=== PATIENT | female | born 1995 | race Caucasian/White ===

== ENCOUNTER 2021-12-04 09:52 | Outpatient (CLI) | payer OTHER, SELFPAY ==
[2021-12-04 10:05] LABS: Hematocrit 41.2 % (37.0-47.0); Hemoglobin 13.9 g/dL (12.0-15.0); Mean Corpuscular HGB Conc 33.7 g/dl (32-36); Mean Corpuscular Hemoglobin 30.9 pg (26-34); Mean Corpuscular Volume 91.6 fl (80-100); Mean Platelet Volume 9.9 fl (7.4-10.4); Platelet Count Result 306 k/mm3 (150-375); Red Cell Distribution Width 12.3 % (11.5-14.5); White Blood Count 9.5 K/mm3 (4.5-10.0)
[2021-12-04 10:19] LABS: Alanine Aminotransferase 22 U/L (6-35); Albumin Level 4.8 g/dL (3.5-5.1); Alkaline Phosphatase 58 U/L (38-126); Anion Gap 13 mmol/L (8-16); Aspartate Amino Transferase 29 U/L (14-36); Bilirubin,Total 0.3 mg/dL (0.2-1.3); Blood Urea Nitrogen 12 mg/dL (7-17); CRP < 0.5 mg/dL (<1.0); Calcium 8.9 mg/dL (8.4-10.2); Carbon Dioxide 27 mmol/L (22-30); Chloride 103 mmol/L (98-107); Estimated Glomerular Filt Rate > 60; Glucose 104 mg/dL (65-110); Lipase 47 U/L (23-300); Sodium 143 mmol/L (137-145)
[2021-12-04 10:40] LABS: Erythrocyte Sedimentation Rate 17 mm/hr (0-20)
== END 2021-12-04 09:53 | disposition home or self-care (01) ==
LOC: ANHLAB 09:53
PROVIDERS: PCP Physician Assistant Medical; Visit Provider Nurse Practitioner
DX: K21.9 Gastro-esophageal reflux disease without esophagitis (principal); K59.00 Constipation, unspecified; R10.11 Right upper quadrant pain; R68.81 Early satiety
CPT/HCPCS: 36415; 80053; 83690; 84443; 85027; 85652; 86140

== ENCOUNTER 2022-01-04 01:06 | Day surgery (SDC) | payer OTHER, SELFPAY ==
[2021-12-17 13:32] VITALS: BMI 26.6
[2022-01-04 10:10] VITALS: BP 129/80; PULSE 105; RESP 18; TEMP 36.7; O2SAT 100; BMI 28.4
--- NOTE | 2022-01-04 10:27 | P.PNAN_ITS ---
Anes - Initial Pre Proc Eval Procedure: Operation Date: 01/04/22 14:15 Proposed Procedures p Esophagogastroduodenoscopy & Colonoscopy - Antony Hernández MD Date/Time: 01/04/22 10:27 Surgeon: Antony Hernández MD Pre Op Diagnosis: RUQ pain, GERD; change in bowel habits Patient Data Age: 26 Gender: F Height: 1.7 m Weight: 82.3 kg Last Vital Signs Temp 36.7 C 01/04/22 10:10 Pulse 105 H 01/04/22 10:10 Resp 18 01/04/22 10:10 BP 129/80 01/04/22 10:10 Pulse Ox 100 01/04/22 10:10 O2 Del Method Room Air 01/04/22 10:10 Allergies Allergy/AdvReac Type Severity Reaction Status Date / Time azithromycin AdvReac Gastrointestinal Verified 01/04/22 10:17 [From Zithromax Z-Remy] Upset Home Medications Medication Instructions Recorded Confirmed Type levonorgestrel 20 mcg/24 hours (8 1 device intrauterine ONCE 10/02/21 01/04/22 History yrs) 52 mg intrauterine device (Mirena) multivitamin 1 tablet PO DAILY 10/02/21 01/04/22 History sertraline 50 mg tablet 50 mg PO DAILY #90 tabs 12/09/21 01/04/22 Rx famotidine 40 mg tablet 40 mg PO DAILY #30 tabs 12/11/21 01/04/22 Rx polyethylene glycol 3350 17 17 g PO PRN PRN Constipation 12/17/21 01/04/22 History gram/dose oral powder (Miralax) Patient hx anesthesia problems: none Family hx anesthesia problems: none Results Review: All pre-operative results and documents have been reviewed as part of the pre- operative evaluation. [facility] Past Medical History Medical History (Updated 12/04/21 @ 09:58 by Dilcia Anderson APRN) Abdominal pain Bloating Change in bowel habit Constipation Early satiety GERD (gastroesophageal reflux disease) Latent tuberculosis Overweight (BMI 25.0-29.9) RUQ pain Family History Family History Mother Hypertension Grandparent Diabetes mellitus Social History Social History (Reviewed 10/28/22 @ 09:02 by RAMOS Gomez Smoking status: Never smoker Alcohol intake: never Substance use type: does not use Living arrangements: with family Spiritual care concerns: No Anes - Eval Final PreProcedure Day of Procedure 01/04/22 10:27 Patient weight: overweight Heart: regular rate and rhythm Lungs: clear to auscultation and normal air movement Airway: Mallampati scale class II Neurological: alert and oriented Last oral intake: >/= 8 hours ASA classification: II Emergent: no Anesthetic plan: proceed Anesthesia type and monitoring: general GIVS Results Review: All pre-operative results and documents have been reviewed as part of the pre- operative evaluation. Informed Consent: The patient's anesthetic plan and its attendant risks and benefits were discussed with the patient/family/POA. Questions were solicited and answers provided to the satisfaction of the patient/family/POA.
[2022-01-04] MEDS: LACTATED RINGERS 1,000 ML 150 ML IV CONT (10:29)
--- NOTE | 2022-01-04 10:34 | WPDHPUPDATE1 ---
History and Physical Update Update Date/Time: 01/04/22 10:34 History and Physical has been reviewed, including an updated exam of the patient. There are NO changes in the patient's condition. Risks, benefits, and alternatives have been discussed and questions answered. Patient agrees to proceed with procedure.
[2022-01-04 10:58] VITALS: BP 95/57; PULSE 96; RESP 21; O2SAT 100
--- NOTE | 2022-01-04 10:58 | SUR.OPER ---
EGD START: 1038; END: 1043. COLONOSCOPY START: 1048; END: 1057.
[2022-01-04 11:08] VITALS: BP 112/73; PULSE 101; RESP 18; O2SAT 100
[2022-01-04 11:18] VITALS: BP 111/74; PULSE 85; RESP 18; O2SAT 100
== END 2022-01-04 11:29 | disposition home or self-care (01) ==
PROVIDERS: PCP Physician Assistant Medical; Visit Provider Internal Medicine Gastroenterology
PROC: 0DJ08ZZ Inspection of Upper Intestinal Tract, Via Natural or Artificial Opening Endoscopic (ICD-10-PCS; CPT 43235; principal; 2022-01-04 14:15)
DX: R10.11 Right upper quadrant pain (principal); K59.00 Constipation, unspecified; K64.8 Other hemorrhoids; K21.00 Gastro-esophageal reflux disease with esophagitis, without bleeding
CPT/HCPCS: 45378; 43239; 88305; J2704; J7120

== ENCOUNTER 2022-10-19 08:01 | Outpatient (CLI) | payer OTHER, BC, SELFPAY ==
--- NOTE | ~2022-10-19 | CT_ITS ---
EXAMINATION: CT abdomen pelvis w con DATE: 10/19/2022 08:22 INDICATION: Right upper quadrant pain, nausea, bloating and early satiety TECHNIQUE: Computed tomography (CT) of the abdomen and pelvis was performed with 100 cc Omnipaque 350 intravenous contrast. The dose-length product was 572.47 mGy-cm. Automated exposure control and iter ative reconstruction technique were employed. COMPARISON: Obstructive series dated 11/26/2021. FINDINGS: Lung bases are unremarkable. Fatty infiltration of the liver. No focal hepatic masses. The spleen, pancreas, adrenal glands and kidneys are unremarkable. Gallbladder is present. There are pelv ic phleboliths. There is mild endometrial prominence. There are follicular changes in the right ovary . Nonobstructive bowel gas pattern. Moderate colonic fecal loading. No free air there is colonic dive rticulosis without evidence for diverticulitis. No free air or free fluid. Gallbladder is present. No secondary findings to suggest cholecystitis. No significant biliary dilatation. No hydronephrosis. N o significant vascular abnormality. No lymphadenopathy. Mild lumbar spondylosis. IMPRESSION: 1. No acute abdominal abnormality. Reviewed, dictated and finalized at location L.
== END 2022-10-19 08:02 | disposition home or self-care (01) ==
PROVIDERS: PCP Physician Assistant Medical; Visit Provider Nurse Practitioner
DX: R14.0 Abdominal distension (gaseous) (principal); R68.81 Early satiety; R10.11 Right upper quadrant pain; K21.9 Gastro-esophageal reflux disease without esophagitis
CPT/HCPCS: 74177; Q9967

== ENCOUNTER 2022-10-21 09:33 | Outpatient (CLI) | payer OTHER, BC, SELFPAY ==
--- NOTE | ~2022-10-21 | NM_ITS ---
EXAM: NM gastric emptying study DATE: 10/21/2022 14:26 INDICATION: Right upper quadrant abdominal pain. TECHNIQUE: A gastric emptying study was performed using the methodology of Eloise MARTE, et al. J Nucl Med 2007; 48:568-572. The patient was given a meal consisting of 2 scrambled eggs labeled with 1.0 m Ci Tc-99m sulfur colloid, 2 slices of toast, two packages of jam, and approximately 120 mL of water. Simultaneous anterior and posterior 1-min images of the abdomen were obtained with the patient supine at multiple time points over a total period of 4 hours. The geometric mean of anterior and posterior views was determined, and the percentage retention was calculated for each time point. COMPARISON: CT abdomen and pelvis 10/19/2022 FINDINGS: Gastric retention of the radiotracer-labeled meal was 65%, 33%, and 7% at the 1-hour, 2-ho ur, and 4-hour time points, respectively. With this technique, apparent rapid gastric emptying is sug gested by <30% gastric retention at 1 hour. Delayed gastric emptying is defined by gastric retention of >90% at 1 hour, >60% retention at 2 hours, or >10% retention at 4 hours. IMPRESSION: 1. Normal gastric emptying. Reviewed, dictated and finalized at location A. IMPRESSION: 1. Normal gastric emptying.
== END 2022-10-21 09:34 | disposition home or self-care (01) ==
PROVIDERS: PCP Physician Assistant Medical; Visit Provider Nurse Practitioner
DX: K21.9 Gastro-esophageal reflux disease without esophagitis (principal); R10.11 Right upper quadrant pain; R14.0 Abdominal distension (gaseous); R68.81 Early satiety; R11.0 Nausea
CPT/HCPCS: 78264; A9541